=== PATIENT | male | born 1980 | race Caucasian/White ===

== ENCOUNTER 2016-09-26 15:44 | Emergency (ER) | payer BC, OTHER ==
[~2016-09-26] VITALS: Ht 165.1 cm; Wt 89.0 kg
[2016-09-26 15:55] VITALS: Ht 165.1 cm; Wt 89.0 kg
[2016-09-26] MEDS ORDERED: IBUPROFEN 800 MG TAB PO ONE (20:00)
[2016-09-26] MEDS ORDERED: IBUP-1542 PO (20:43)
--- NOTE | 2016-09-26 20:45 | ERD ---
ER Documentation Chief Complaint Date/Time DATE: 09/26/16 TIME: 20:45 Chief Complaint CP ONSET 1 HR AGO HPI Patient is a 28-year-old male with no medical problems who presents with chest pain. His left-sided chest pain. Started today while he was at work. He denies drugs or smoking. He has had no treatment as of yet. He feels better now. ROS All systems reviewed and are negative except as per history of present illness. Medications Home Meds Active Scripts Ibuprofen* (Motrin*) 600 Mg Tab, 600 MG PO Q8, #30 TAB Prov:JESÚS GARCIA MD 09/26/16 PMhx/Soc Medical and Surgical Hx: pt denies Surgical Hx History of Surgery: No Anesthesia Reaction: No Hx Neurological Disorder: No Hx Respiratory Disorders: No Hx Cardiac Disorders: Yes (HYPERLIPIDEMIA) Hx Psychiatric Problems: No Hx Miscellaneous Medical Probl: No Hx Alcohol Use: Yes (OCCASIONAL) Hx Substance Use: No Hx Tobacco Use: No Smoking Status: Unknown if ever smoked FmHx Family History: No coronary disease Physical Exam Vitals Vital Signs Date Time Temp Pulse Resp B/P Pulse Ox O2 Delivery O2 Flow Rate FiO2 09/26/16 20:50 78 16 148/82 97 Room Air 09/26/16 15:55 98.1 100 18 142/85 99 Physical Exam Const: No acute distress Head: Atraumatic Eyes: Normal Conjunctiva ENT: Normal External Ears, Nose and Mouth. Neck: Full range of motion..~ No meningismus. Resp: Clear to auscultation bilaterally Cardio: Regular rate and rhythm, no murmurs Abd: Soft, non tender, non distended. Normal bowel sounds Skin: No petechiae or rashes Back: No midline or flank tenderness Ext: No cyanosis, or edema Neur: Awake and alert Psych: Normal Mood and Affect Results 24 hrs Current Medications Medications (Trade) Dose Ordered Sig/Rakesh Route PRN Reason Start Time Stop Time Status Last Admin Dose Admin Ibuprofen (Motrin) 800 mg ONCE ONCE PO 09/26/16 20:00 09/26/16 20:01 DC 09/26/16 20:19 Procedures/MDM EKG read by me: Rate/Rhythm: Right bundle branch block a rate of 99 Intervals: Normal Impression: Right bundle branch block without ischemia Chest X-ray 1V Interpreted by me: Soft Tissue: No acute abnormalities Bones: No acute abnormalities Mediastinum/Cardiac Silhouette/Lungs: No acute abnormalities Patient is a 36-year-old male presents with chest pain. He has no risk factors for cardiac disease. His EKG and chest x-ray were negative. At this point I believe outpatient management is appropriate. I doubt acute coronary syndrome, pneumonia, pneumothorax, pulmonary embolism, or aortic dissection. The patient will be discharged but will need to follow-up closely with the primary doctor within 24-48 hours. He can return sooner for any worsening symptoms. Departure Diagnosis: Primary Impression: Chest pain Chest pain type: unspecified Qualified Code: R07.9 - Chest pain, unspecified type Condition: Fair Patient Instructions: Chest Pain, Uncertain Cause Referrals: Your doctor Additional Instructions: Call your primary care doctor TOMORROW for an appointment during the next 1-2 days.See the doctor sooner or return here if your condition worsens before your appointment time. JESÚS GARCIA MD September 26, 2016 20:45
[2016-09-26 20:50] VITALS: BP 148/82; PULSE 78; RESP 16
--- NOTE | 2016-09-26 21:19 | RADRPT ---
PROCEDURE: XR Chest. CLINICAL INDICATION: chest pain TECHNIQUE: Single frontal view of the chest was obtained COMPARISON: None FINDINGS: The heart and mediastinum are within normal limits. The lungs are clear. There is no pleural effusion or pneumothorax. RPTAT: AA IMPRESSION: No acute disease. .Cristhian Zambrano MD, Date Time Electronically viewed and signed by .Cristhian Zambrano MD, on 09/26/2016 21:19 .S/
== END 2016-09-26 20:55 | disposition home or self-care (01) ==
LOC: E/R 15:44
DX: R07.9 Chest pain, unspecified (principal)
CPT/HCPCS: 71010; 93005

== ENCOUNTER 2018-04-07 03:19 | Emergency (ER) | END 2018-04-07 05:45 | disposition home or self-care (01) ==